=== PATIENT | male | born 1930 | race Caucasian/White ===

== ENCOUNTER 2016-11-29 07:47 | Outpatient (CLI) | payer MEDICARE, OTHER ==
[2016-11-29 13:45] LABS: ALBUMIN/GLOBULIN RATIO 1.7 (1.0-2.2); BILIRUBIN,TOTAL 0.7 mg/dL (0.2-1.0); CALCIUM 9.3 mg/dL (8.5-10.3); CREATININE 1.2 mg/dL (0.6-1.2); POTASSIUM 4.2 mmol/L (3.5-5.0); TOTAL PROTEIN 6.5 g/dL (6.7-8.2)
[2016-11-29 14:08] LABS: HEMOGLOBIN A1C 0.5 g/dL
== END 2016-11-29 07:48 | disposition home or self-care (01) ==
LOC: LAB.WCP 07:47
PROVIDERS: ATTEND Family Medicine
DX: I10 Essential (primary) hypertension (principal); E11.9 Type 2 diabetes mellitus without complications; E78.5 Hyperlipidemia, unspecified; N40.0 Benign prostatic hyperplasia without lower urinary tract symptoms
CPT/HCPCS: 36415; 80053; 82043; 83036

== ENCOUNTER 2016-12-06 09:48 | Outpatient (CLI) | payer MEDICARE, OTHER | END 2016-12-06 09:49 | disposition home or self-care (01) | DX: I95.1 Orthostatic hypotension (principal); R94.6 Abnormal results of thyroid function studies; R55 Syncope and collapse ==

== ENCOUNTER 2016-12-07 08:06 | Outpatient (CLI) | payer MEDICARE, OTHER | END 2016-12-07 08:07 | disposition home or self-care (01) | LOC: DI 08:06 | PROVIDERS: ATTEND Family Medicine | DX: I25.10 Atherosclerotic heart disease of native coronary artery without angina pectoris (principal) | CPT/HCPCS: 93306 ==

== ENCOUNTER 2017-12-28 18:06 | Emergency (ER) | payer MEDICARE, OTHER ==
--- NOTE | 2017-12-28 19:06 | XRAY Report ---
EXAM: LEFT KNEE RADIOGRAPHY EXAM DATE: 12/28/2017 06:56 PM. CLINICAL HISTORY: Knee pain and swelling. COMPARISON: None. TECHNIQUE: 4 views. FINDINGS: Bones: Small osteophytes are present. No fractures or bone lesions. Joints: Moderate severe tricompartmental osteoarthritic changes present. Moderate suprapatellar effus ion seen. No subluxations. Soft Tissues: Normal. No soft tissue swelling. IMPRESSION: Moderate suprapatellar joint effusion, with moderate severe tricompartmental osteoarthrit ic changes. No acute fracture noted. [facility] Referring Provider Line: [phone] SITE ID: [id number]
--- NOTE | 2017-12-28 19:06 | XRAY Preliminary Report ---
Exam: XR KNEE 4 VIEW LT IMPRESSION: Moderate suprapatellar joint effusion, with moderate severe tricompartmental osteoarthrit ic changes. No acute fracture noted. [facility] SITE ID: [id number]
[2017-12-28] MEDS ORDERED: IBUPROFEN 600 MG TABLET PO STA (19:21)
--- NOTE | 2017-12-28 19:30 | ED Physician Documentation ---
PD HPI LOWER EXT INJURY - Stated complaint Stated Complaint: L LEG PX - Chief complaint Chief Complaint: Ext Problem - History obtained from History obtained from: Patient, Family - History of Present Illness PD HPI LOW EXT INJURY LOCATION: Left, Knee Where injury occurred: Home Timing - onset: How many days ago (2) Timing - details: Gradual onset, Still present Improved by: Immobilization Worsened by: Moving, Palpating Associated symptoms: Swelling Similar symptoms before: No diagnosis Recently seen: Not recently seen - Additional information Additional information: Patient is an 87 year old male presenting to the emergency department for pain and swelling of his left knee. Patient states that he does have a history of arthritis and the last few days he has been working on his yard, painting his house and other activities. Patient states that his knee started to get swollen and progressively worse. Review of Systems Ten Systems: 10 systems reviewed and negative Constitutional: denies: Fever, Chills Musculoskeletal: reports: Extremity pain, Joint pain, Extremity swelling, Joint swelling Neurologic: denies: Focal weakness PD PAST MEDICAL HISTORY - Past Medical History Cardiovascular: Murmur Respiratory: None Endocrine/Autoimmune: Type 2 diabetes GI: GERD, Colon polyps : Benign prostate hypertrophy, Incontinence, Frequency HEENT: None Psych: None Musculoskeletal: Osteoarthritis Derm: None - Past Surgical History General: Cholecystectomy, Colonoscopy Ortho: Hip replacement, Arthroscopic surgery HEENT: Cataracts - Present Medications Home Medications: Ambulatory Orders Medication Instructions Recorded Confirmed Aspirin Chewable [[facility] 81 mg PO DAILY 02/11/13 02/11/13 Aspirin] Esomeprazole Magnesium [Nexium] 40 mg PO DAILY 02/11/13 02/11/13 Ipratropium [place] 15 ml NS 02/11/13 02/11/13 Lisinopril [Zestril] 10 mg PO DAILY 02/11/13 02/11/13 Metformin HCl [Fortamet] 500 mg PO DAILY 02/11/13 02/11/13 Simvastatin [Zocor] 10 mg PO QPM 02/11/13 02/11/13 - Allergies Allergies/Adverse Reactions: Allergies Allergy/AdvReac Type Severity Reaction Status Date / Time No Known Drug Allergies Allergy Unverified 02/11/13 13:58 PD ED PE NORMAL - Vitals Vital signs reviewed: Yes - General General: Alert and oriented X 3 - HEENT HEENT: Atraumatic - Cardiac Cardiac: RRR - Respiratory Respiratory: No respiratory distress - Abdomen Abdomen: Non distended - Derm Derm: Normal color - Neuro Neuro: Alert and oriented X 3, No motor deficit, Normal speech Eye Opening: Spontaneous PD ED PE EXPANDED - Extremities Extremities: Left knee (tenderness and swelling of left knee) Results - Vitals Vitals: Vital Signs - 24 hr 12/28/17 12/28/17 18:25 19:47 Temperature 36.7 C 36.5 C Heart Rate 73 77 Respiratory 20 22 Rate Blood Pressure 163/81 H 186/82 H O2 Saturation 97 98 Oxygen O2 Source Room air - Rads (name of study) left knee Radiology: Final report received (severe arthritis, no acute fracture or dislocation) PD MEDICAL DECISION MAKING - ED course Complexity details: reviewed old records, reviewed results, re-evaluated patient , considered differential, d/w patient, d/w family ED course: Patient was seen and examined at bedside. Patient was well appearing. Patient was sent for imaging. When patient returned the results were reviewed. Patient was found to have severe arthritis but no fracture or dislocation. Patient's knee was viewed under ultrasound and there was a large effusion. patient was offered an arthrocentesis but refused at this time. Patient was given ice and ibuprofen. patient required no further work up and was stable for discharge with outpatient follow up. - Sepsis Event Vital Signs: Vital Signs - 24 hr 18 12/28/17 18:25 19:47 Temperature 36.7 C 36.5 C Heart Rate 73 77 Respiratory 20 22 Rate Blood Pressure 163/81 H 186/82 H O2 Saturation 97 98 Oxygen O2 Source Room air Departure - Departure Disposition: 01 Home, Self Care Clinical Impression: Arthritis, Effusion of left knee Condition: Good Instructions: ANTI-INFLAMMATORY, General Follow-Up: Samuel Campos MD [Primary Care Provider] - Comments: Your symptoms today are being caused by a arthritis and a knee effusion. you should ice your knee at least 4 times a day. you can take ibuprofen 600mg and tylenol 1000mg as needed for pain. you should elevate your leg when you are sitting. You should decrease your physical activity over the next few days. you should follow up with your doctor on saturday if your symptoms aren't improving. you may return to the emergency department at any time for new, worsening or uncontrollable symptoms. Discharge Date/Time: 12/28/17 19:53
[2017-12-28 19:49] VITALS: BP 186/82
== END 2017-12-28 19:53 | disposition home or self-care (01) ==
LOC: ED 18:06
DX: M25.462 Effusion, left knee (principal); M17.12 Unilateral primary osteoarthritis, left knee; E11.9 Type 2 diabetes mellitus without complications; Z79.84 Long term (current) use of oral hypoglycemic drugs; Z79.82 Long term (current) use of aspirin
CPT/HCPCS: 73564; 99283; A9270

== ENCOUNTER 2018-01-03 08:08 | Outpatient (CLI) | payer MEDICARE, OTHER ==
[2018-01-03 12:38] LABS: BASOPHILS # (AUTO) 0.1 10^3/uL (0.0-0.1); BASOPHILS % (AUTO) 1.3 %; EOSINOPHILS # (AUTO) 0.3 10^3/uL (0.0-0.7); EOSINOPHILS % (AUTO) 5.7 %; HGB - HEMOGLOBIN 12.6 g/dL (14.0-18.0); LYMPHOCYTES # (AUTO) 0.6 10^3/uL (1.5-3.5); LYMPHOCYTES % (AUTO) 12.3 %; MEAN CORPUSCULAR HEMOGLOBIN 31.6 pg (27.0-31.0); MEAN CORPUSCULAR HGB CONC 33.1 g/dL (32.0-36.0); MEAN CORPUSCULAR VOLUME 95.5 fL (80.0-94.0); MEAN PLATELET VOLUME 8.4 fL (7.4-11.4); MONOCYTES # (AUTO) 0.7 10^3/uL (0.0-1.0); MONOCYTES % (AUTO) 13.8 %; NEUTROPHILS # (AUTO) 3.2 10^3/uL (1.5-6.6); NEUTROPHILS % (AUTO) 66.9 %; PLT - PLATELET COUNT 184 10^3/uL (130-450); RED BLOOD COUNT 3.99 10^6/uL (4.70-6.10); RED CELL DISTRIBUTION WIDTH 13.7 % (12.0-15.0); WHITE BLOOD COUNT 4.8 x10^3/uL (4.8-10.8)
[2018-01-03 13:12] LABS: ALBUMIN 3.7 g/dL (3.2-5.5); ALBUMIN/GLOBULIN RATIO 1.2 (1.0-2.2); ALKALINE PHOSPHATASE 43 IU/L (42-121); ALT ALANINE AMINOTRANSFERASE 17 IU/L (10-60); AST ASPARTATE AMINOTRANSFERASE 20 IU/L (10-42); BILIRUBIN,TOTAL 0.4 mg/dL (0.2-1.0); BUN - BLOOD UREA NITROGEN 25 mg/dL (6-20); CALCIUM 9.3 mg/dL (8.5-10.3); CARBON DIOXIDE - CO2 23 mmol/L (21-32); CHLORIDE 107 mmol/L (101-111); CHOL/HDL RATIO 2.1 (<5.0); CHOLESTEROL 130 mg/dL; GFR - MDRD 71 (>89); GLUCOSE 115 mg/dL (70-100); HDL CHOLESTEROL 63 mg/dL; LDL CHOLESTEROL,CALCULATED 58 mg/dL; LDL/HDL RATIO 0.9 (<3.6); SODIUM 138 mmol/L (135-145); TOTAL PROTEIN 6.9 g/dL (6.7-8.2); VLDL CHOLESTEROL 9 mg/dL
[2018-01-03 13:45] LABS: HB2 TOTAL 13.3 g/dL; HEMOGLOBIN A1C 0.49 g/dL; HEMOGLOBIN A1C % 5.5 % (4.6-6.2)
== END 2018-01-03 23:59 | disposition home or self-care (01) ==
LOC: LAB.WCP 08:08
PROVIDERS: ATTEND Family Medicine
DX: R94.6 Abnormal results of thyroid function studies (principal); E11.9 Type 2 diabetes mellitus without complications; I10 Essential (primary) hypertension; K21.9 Gastro-esophageal reflux disease without esophagitis; L93.0 Discoid lupus erythematosus; E78.5 Hyperlipidemia, unspecified
CPT/HCPCS: 36415; 80053; 80061; 82043; 83036; 83721; 84443; 85025

== ENCOUNTER 2018-04-15 10:20 | Outpatient (CLI) | payer MEDICARE, OTHER ==
[2018-04-15 14:49] LABS: BASOPHILS # (AUTO) 0.1 10^3/uL (0.0-0.1); EOSINOPHILS # (AUTO) 0.1 10^3/uL (0.0-0.7); EOSINOPHILS % (AUTO) 2.5 %; HGB - HEMOGLOBIN 12.8 g/dL (14.0-18.0); LYMPHOCYTES # (AUTO) 0.5 10^3/uL (1.5-3.5); MEAN CORPUSCULAR HEMOGLOBIN 31.7 pg (27.0-31.0); MEAN CORPUSCULAR HGB CONC 33.9 g/dL (32.0-36.0); MEAN CORPUSCULAR VOLUME 93.7 fL (80.0-94.0); MEAN PLATELET VOLUME 9.2 fL (7.4-11.4); MONOCYTES # (AUTO) 0.7 10^3/uL (0.0-1.0); MONOCYTES % (AUTO) 12.5 %; NEUTROPHILS # (AUTO) 4.2 10^3/uL (1.5-6.6); PLT - PLATELET COUNT 150 10^3/uL (130-450); RED BLOOD COUNT 4.03 10^6/uL (4.70-6.10); RED CELL DISTRIBUTION WIDTH 14.2 % (12.0-15.0); WHITE BLOOD COUNT 5.6 x10^3/uL (4.8-10.8)
[2018-04-15 15:18] LABS: ALBUMIN 4.1 g/dL (3.2-5.5); ALBUMIN/GLOBULIN RATIO 1.3 (1.0-2.2); BILIRUBIN,TOTAL 0.5 mg/dL (0.2-1.0); CALCIUM 9.4 mg/dL (8.5-10.3); CRP - C-REACTIVE PROTEIN 6.4 mg/dL (0-1.0); TOTAL PROTEIN 7.3 g/dL (6.7-8.2)
[2018-04-15 15:40] LABS: HB2 TOTAL 13.4 g/dL; HEMOGLOBIN A1C 0.5 g/dL; HEMOGLOBIN A1C % 5.6 % (4.6-6.2)
== END 2018-04-15 10:21 | disposition home or self-care (01) ==
LOC: LAB.WCP 10:20
PROVIDERS: ATTEND Family Medicine
DX: R60.0 Localized edema (principal); E11.9 Type 2 diabetes mellitus without complications; I10 Essential (primary) hypertension
CPT/HCPCS: 36415; 80053; 83036; 85025; 85379; 85651; 86140

== ENCOUNTER 2018-04-17 18:55 | Outpatient (CLI) | payer MEDICARE, OTHER ==
--- NOTE | 2018-04-18 14:52 | Ultrasound Report ---
Reason: EDEMA OF THE UPPER EXTREMITY Procedure Date: 04/17/2018 Accession Number: [id number] / [id number] Procedure: US - Duplex Upr Ext Arterial RT CPT Code: FULL RESULT: EXAM: RIGHT UPPER EXTREMITY ARTERIAL DOPPLER ULTRASOUND EXAM DATE: 04/17/2018 07:40 PM. CLINICAL HISTORY: Edema of the upper extremity. COMPARISON: None. TECHNIQUE: Real-time sonographic vascular imaging was performed by the offender job retention specialist, utilizing color-flow, Doppler flow, and spectral analysis. Multiple community relations representative static images were saved for review. FINDINGS: Subjectively the arterial system is free of atherosclerotic disease and patent by color Doppler, spectral Doppler and grayscale ultrasound. Expected arterial waveforms are preserved throughout the right arm and forearm. Right Upper Extremity Arterial: Subclavian Proximal: PSV 88 Subclavian Mid: PSV 82 Subclavian Distal: PSV 109 Axillary Proximal: PSV 64 Axillary Distal: PSV 87 Brachial Proximal: PSV 112 Brachial Distal: PSV 98 Radial Proximal: PSV 104 Radial Distal: PSV 90 Ulnar Proximal: PSV 56 Ulnar Distal: PSV 80 IMPRESSION: Normal arterial interrogation. If there is unilateral arm swelling, consider upper extremity venous duplex to exclude the possibility of a DVT, especially if there is a history of central venous port or central venous line placement. [facility]
== END 2018-04-17 18:56 | disposition home or self-care (01) ==
LOC: DI 18:55
PROVIDERS: ATTEND Family Medicine
DX: R60.0 Localized edema (principal)

== ENCOUNTER 2018-04-17 19:12 | Outpatient (CLI) | payer MEDICARE, OTHER | END 2018-04-17 19:13 | disposition home or self-care (01) | LOC: DI 19:12 | PROVIDERS: ATTEND Family Medicine | DX: R60.0 Localized edema (principal) ==

== ENCOUNTER 2018-10-17 07:46 | Outpatient (CLI) | payer MEDICARE, OTHER ==
[2018-10-17 13:31] LABS: ALBUMIN 4.1 g/dL (3.2-5.5); ALBUMIN/GLOBULIN RATIO 1.5 (1.0-2.2); ALKALINE PHOSPHATASE 38 IU/L (42-121); ALT ALANINE AMINOTRANSFERASE 17 IU/L (10-60); AST ASPARTATE AMINOTRANSFERASE 23 IU/L (10-42); BILIRUBIN,TOTAL 0.7 mg/dL (0.2-1.0); BUN - BLOOD UREA NITROGEN 27 mg/dL (6-20); CALCIUM 9.7 mg/dL (8.5-10.3); CARBON DIOXIDE - CO2 25 mmol/L (21-32); CHLORIDE 105 mmol/L (101-111); CHOL/HDL RATIO 1.8 (<5.0); CHOLESTEROL 137 mg/dL; CREATININE 1.3 mg/dL (0.6-1.2); GFR - MDRD 52 (>89); GLUCOSE 115 mg/dL (70-100); HDL CHOLESTEROL 75 mg/dL; LDL CHOLESTEROL,CALCULATED 52 mg/dL; LDL/HDL RATIO 0.7 (<3.6); SODIUM 139 mmol/L (135-145); TOTAL PROTEIN 6.8 g/dL (6.7-8.2); VLDL CHOLESTEROL 10 mg/dL
[2018-10-17 14:07] LABS: HEMOGLOBIN A1C 0.61 g/dL; HEMOGLOBIN A1C % 6.1 % (4.6-6.2)
== END 2018-10-17 23:59 | disposition home or self-care (01) ==
LOC: LAB.WCP 07:46
PROVIDERS: ATTEND Family Medicine
DX: I10 Essential (primary) hypertension (principal); E11.9 Type 2 diabetes mellitus without complications; E78.5 Hyperlipidemia, unspecified
CPT/HCPCS: 36415; 80053; 80061; 83036; 83721

== ENCOUNTER 2018-11-26 08:10 | Outpatient (CLI) | payer MEDICARE, OTHER ==
[2018-11-26 12:49] LABS: BASOPHILS # (AUTO) 0.1 10^3/uL (0.0-0.1); BASOPHILS % (AUTO) 1.1 %; EOSINOPHILS # (AUTO) 0.3 10^3/uL (0.0-0.7); EOSINOPHILS % (AUTO) 6.2 %; HGB - HEMOGLOBIN 12.9 g/dL (14.0-18.0); LYMPHOCYTES # (AUTO) 0.7 10^3/uL (1.5-3.5); LYMPHOCYTES % (AUTO) 14.4 %; MEAN CORPUSCULAR HEMOGLOBIN 31.6 pg (27.0-31.0); MEAN CORPUSCULAR VOLUME 95.7 fL (80.0-94.0); MEAN PLATELET VOLUME 9.1 fL (7.4-11.4); MONOCYTES # (AUTO) 0.6 10^3/uL (0.0-1.0); MONOCYTES % (AUTO) 13.3 %; NEUTROPHILS # (AUTO) 3.1 10^3/uL (1.5-6.6); PLT - PLATELET COUNT 146 10^3/uL (130-450); RED BLOOD COUNT 4.07 10^6/uL (4.70-6.10); RED CELL DISTRIBUTION WIDTH 14.1 % (12.0-15.0); WHITE BLOOD COUNT 4.7 x10^3/uL (4.8-10.8)
[2018-11-26 13:27] LABS: CALCIUM 9.2 mg/dL (8.5-10.3); CREATININE 1.1 mg/dL (0.6-1.2)
== END 2018-11-26 08:11 | disposition home or self-care (01) ==
LOC: LAB.WCP 08:10
PROVIDERS: ATTEND Family Medicine
DX: I10 Essential (primary) hypertension (principal); E11.9 Type 2 diabetes mellitus without complications
CPT/HCPCS: 36415; 80048; 84443; 85025

== ENCOUNTER 2019-05-03 18:55 | Outpatient (CLI) | payer MEDICARE, OTHER | END 2019-05-03 18:56 | disposition critical access hospital (66) | LOC: EMS 18:55 | PROVIDERS: ATTEND Surgery | DX: R51 Headache (principal); M54.2 Cervicalgia | CPT/HCPCS: A0425; A0429 ==

== ENCOUNTER 2019-05-03 19:14 | Emergency (ER) | payer MEDICARE, OTHER ==
--- NOTE | 2019-05-03 20:03 | ED Physician Documentation ---
PD HPI HEADACHE - Stated complaint Stated Complaint: HEADACHE - Chief complaint Chief Complaint: Neuro - History obtained from History obtained from: Patient - History of Present Illness Timing - onset: Today (onset severe posterior neck pain after getting up this morning. No noted injury. It improved with some Aleve after an hour or so, and was good through the day. Onset again at rest this evening about 2 hours ago. Took Aleve again but was not really helping. Here for eval. Pain worse with ROM of the neck. No headache per se. No neuro symptoms. No prior similar.) Timing - onset during: Rest Timing - duration: Hours Timing - details: Abrupt onset, Still present Worst headache ever?: Worst headache ever? Location: Back, Right (mid to upper neck, not into head per se.) Quality: Stabbing. No: Thunderclap Associated symptoms: No: Fever, Stiff neck, Nausea, Vomiting, Weakness, Numbness, Vision changes Worsened by: No: Light, Noise Contributing factors: No: Recent illness Similar symptoms before: Has not had sx before Recently seen: Not recently seen Review of Systems Constitutional: denies: Fever, Chills Nose: denies: Rhinorrhea / runny nose, Congestion Throat: denies: Sore throat Respiratory: denies: Cough GI: denies: Abdominal Pain, Nausea, Vomiting, Diarrhea Skin: denies: Rash, Lesions Neurologic: denies: Focal weakness, Numbness PD PAST MEDICAL HISTORY - Past Medical History Cardiovascular: Murmur Respiratory: None Neuro: None Endocrine/Autoimmune: Other GI: GERD, Colon polyps : Benign prostate hypertrophy, Incontinence, Frequency HEENT: None Psych: None Musculoskeletal: Osteoarthritis Derm: None Other Past Medical History: pre diabetes - Past Surgical History Past Surgical History: Yes General: Cholecystectomy, Colonoscopy Ortho: Hip replacement HEENT: Cataracts - Present Medications Home Medications: Ambulatory Orders Medication Instructions Recorded Confirmed Aspirin Chewable [[facility] 81 mg PO DAILY 02/11/13 02/11/13 Aspirin] Esomeprazole Magnesium [Nexium] 40 mg PO DAILY 02/11/13 02/11/13 Ipratropium [place] 15 ml NS 02/11/13 02/11/13 Lisinopril [Zestril] 10 mg PO DAILY 02/11/13 02/11/13 Metformin HCl [Fortamet] 500 mg PO DAILY 02/11/13 02/11/13 Simvastatin [Zocor] 10 mg PO QPM 02/11/13 02/11/13 Hydrocodone/Acetaminophen [[place] 1 each PO Q6H PRN #15 tablet 05/03/19 5-325 Tablet] - Allergies Allergies/Adverse Reactions: Allergies Allergy/AdvReac Type Severity Reaction Status Date / Time No Known Drug Allergies Allergy Unverified 02/11/13 13:58 - Social History Does the pt smoke?: No Smoking Status: Never smoker Does the pt drink ETOH?: No Does the pt have substance abuse?: No - Immunizations Immunizations are current?: Yes PD ED PE NORMAL - Vitals Vital signs reviewed: Yes - General General: Alert and oriented X 3, Well developed/nourished, Other (appears uncomfortable but pleasant and alert.) - HEENT HEENT: Moist mucous membranes, Pharynx benign - Neck Neck: Supple, no meningeal sign, No adenopathy, Other (tender right paracervical muscles. No rash nor redness. No deformity. Good ROM but hurts with upward and right sideward movement. ) - Cardiac Cardiac: RRR, No murmur - Respiratory Respiratory: Clear bilaterally - Back Back: No CVA TTP - Derm Derm: Normal color, Warm and dry - Neuro Neuro: Alert and oriented X 3, center line cutter operator 2-12 intact, No motor deficit, No sensory deficit, Normal speech, Other Results - Vitals Vitals: Vital Signs - 24 hr 05/03/19 05/03/19 05/03/19 19:16 20:00 21:52 Temperature 36.4 C L 36.8 C Heart Rate 76 77 71 Respiratory 14 12 Rate Blood Pressure 154/85 H 158/96 H 148/61 H O2 Saturation 99 97 97 05/03/19 23:23 Temperature 36.9 C Heart Rate 78 Respiratory 16 Rate Blood Pressure 156/88 H O2 Saturation 97 Oxygen O2 Source Room air - Labs Labs: Laboratory Tests 05/03/19 05/03/19 20:45 20:45 ESR 20 Sodium 142 Potassium 4.0 Chloride 109 Carbon Dioxide 25 Anion Gap 8.0 BUN 23 H Creatinine 0.9 Estimated GFR (MDRD) 79 L Glucose 151 H Calcium 9.1 Total Bilirubin 0.4 AST 21 ALT 18 Alkaline Phosphatase 44 Total Protein 6.6 L Albumin 3.8 Globulin 2.8 Albumin/Globulin Ratio 1.4 Lipase 26 - Rads (name of study) cervical CT and CTA Radiology: Prelim report reviewed (arthritic changes. 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 ), considered differential, d/w patient Departure - Departure Disposition: 01 Home, Self Care Clinical Impression: Acute neck pain Condition: Stable Record reviewed to determine appropriate education?: Yes Instructions: ED Sprain Strain Neck Follow-Up: Samuel Campos MD [Primary Care Provider] - Prescriptions: Hydrocodone/Acetaminophen [[place] 5-325 Tablet] 1 each PO Q6H PRN #15 tablet PRN Reason: Pain Comments: The CT scan of the neck shows some arthritic changes and some mild vascular abnormalities but none that represent acute process or reason for hurting. This seems to be muscular therefore. Use some heat and gentle stretching for the neck. Consider anti-inflammatory such as the Aleve 2 tablets 3 times a day for the next for 5 days. To that add Tylenol 4 times a day or hydrocodone if needed for worse pain. I would anticipate improvement over the next several days presuming just a muscle strain with spasms Discharge Date/Time: 05/03/19 23:41
[2019-05-03] MEDS ORDERED: KETOROLAC 15 MG/ML VIAL IVP STA (20:17)
[2019-05-03] MEDS ORDERED: SODIUM CHLORIDE 0.9% 1,000 ML IV ONE (20:17)
[2019-05-03] MEDS ORDERED: DEXAMETHASONE 10 MG/ML VIAL IVP STA (20:18)
[2019-05-03 21:02] LABS: ALBUMIN 3.8 g/dL (3.2-5.5); ALBUMIN/GLOBULIN RATIO 1.4 (1.0-2.2); BILIRUBIN,TOTAL 0.4 mg/dL (0.2-1.0); CALCIUM 9.1 mg/dL (8.5-10.3); CREATININE 0.9 mg/dL (0.6-1.2); TOTAL PROTEIN 6.6 g/dL (6.7-8.2)
[2019-05-03] MEDS ORDERED: IOVERSOL 320 100 ML VIAL IVP ONE ×2 (21:04→21:47)
--- NOTE | 2019-05-03 22:14 | CT Report ---
Reason: neck pain onset this AM; again this evening Procedure Date: 05/03/2019 Accession Number: [id number] / [id number] Procedure: CT - CERVICAL SPINE WO CPT Code: FULL RESULT: EXAM: CT CERVICAL SPINE WITHOUT CONTRAST DATE: 05/03/2019 09:39 PM. HISTORY: Neck pain since this morning. COMPARISONS: None. TECHNIQUE: Thin-section axial images were acquired of the cervical spine without contrast. Post-processing: Coronal and sagittal reformats. Other: None. In accordance with CT protocol optimization, one or more of the following dose reduction techniques were utilized for this exam: automated exposure control, adjustment of mA and/or KV based on patient size, or use of iterative reconstructive technique. FINDINGS: Alignment: No pathologic subluxation demonstrated. Bones: No acute displaced fracture or suspicious bony lesion is demonstrated. However, bones are moderate to severely osteopenic. This reduces exam sensitivity and specificity for detection of subtle bony lesions and/or fractures. Interspace Levels/Facets: There is moderate to severe multilevel cervical spondylitic change. There is no significant bony central canal stenosis demonstrated. Other: Moderate right apical pleural thickening/scarring. Mild similar left apical pleural thickening/scarring. All the visualized paravertebral soft tissues are without abnormality. IMPRESSION: 1. There is moderate to severe multilevel cervical spondylitic change. 2. No definite acute bony abnormality. However, bones are moderate to severely osteopenic. This reduces exam sensitivity and specificity for detection of subtle bony lesions and/or fractures. [facility]
--- NOTE | 2019-05-03 23:17 | CT Report ---
Reason: neck pain onset this AM; again this evening Procedure Date: 05/03/2019 Accession Number: [id number] / [id number] Procedure: CT - ANGIO NECK W CPT Code: FULL RESULT: EXAM: CT ANGIOGRAM NECK EXAM DATE: 05/03/2019 09:44 PM. CLINICAL HISTORY: Neck pain onset this AM, and again this evening. COMPARISON: None. TECHNIQUE: Routine axial helical imaging was performed from the skull base through the aortic arch. Reconstructions: Routine multiplanar 3D MIP reconstructions. IV Contrast: 100 mL Optiray 320. Evaluation of arterial stenosis is based on a NASCET method of measurement. In accordance with CT protocol optimization, one or more of the following dose reduction techniques were utilized for this exam: automated exposure control, adjustment of mA and/or KV based on patient size, or use of iterative reconstructive technique. FINDINGS: Right Carotid: The common, internal, and external carotid arteries are patent. Mild calcified plaque is present at the carotid bifurcation without hemodynamically significant stenosis. A linear filling defect is seen along the posterior wall of the proximal ICA (image 154, series 2), likely representing an old dissection. 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 Left Carotid: The common, internal, and external carotid arteries are patent. Bulky calcifications are present at the carotid bifurcation resulting in approximately 50% stenosis of the ICA origin. Additionally, there is a filling defect along the lateral and anterior wall of the proximal ICA, suspicious for an old aneurysm with associated anteriorly directed pseudoaneurysm measuring 2 x 2 mm (image 178, series 2) versus an ulcerated plaque. Vertebrals: The vertebrobasilar system shows no stenoses. The left vertebral artery is dominant. Intracranial Circulation: Normal. No stenoses or aneurysms of the visualized vessels. Other: Mild emphysematous changes are noted in the visualized upper lungs. There is mild right apical scarring. The airway is patent. Moderate to severe degenerative changes are present throughout the cervical spine. No acute abnormality is seen in the remaining soft tissues of the neck. IMPRESSION: 1. 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 2. 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 3. 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 4. Patent vertebral arteries. [facility]
[2019-05-03 23:23] VITALS: BP 156/88
[2019-05-03] MEDS ORDERED: HYDROcod/ACET 5/325 Prepack 4 PO STA (23:29)
== END 2019-05-03 23:41 | disposition home or self-care (01) ==
LOC: EDUNIT# → ED 19:14
DX: M54.2 Cervicalgia (principal); M47.812 Spondylosis without myelopathy or radiculopathy, cervical region; Z79.82 Long term (current) use of aspirin
CPT/HCPCS: 36415; 70498; 72125; 80053; 83690; 85651; 96361; 96374; 96375; 99284; Q9967

== ENCOUNTER 2019-05-12 08:00 | Outpatient (CLI) | payer MEDICARE, OTHER ==
[2019-05-12 12:18] LABS: BASOPHILS % (AUTO) 0.5 %; EOSINOPHILS # (AUTO) 0.2 10^3/uL (0.0-0.7); HGB - HEMOGLOBIN 11.8 g/dL (14.0-18.0); LYMPHOCYTES # (AUTO) 0.6 10^3/uL (1.5-3.5); MEAN CORPUSCULAR HEMOGLOBIN 30.3 pg (27.0-31.0); MEAN CORPUSCULAR HGB CONC 31.1 g/dL (32.0-36.0); MEAN CORPUSCULAR VOLUME 97.7 fL (80.0-94.0); MEAN PLATELET VOLUME 9.8 fL (7.4-11.4); MONOCYTES # (AUTO) 0.9 10^3/uL (0.0-1.0); MONOCYTES % (AUTO) 16.2 %; NEUTROPHILS # (AUTO) 3.8 10^3/uL (1.5-6.6); NEUTROPHILS % (AUTO) 67.8 %; PLT - PLATELET COUNT 209 10^3/uL (130-450); RED BLOOD COUNT 3.89 10^6/uL (4.70-6.10); RED CELL DISTRIBUTION WIDTH 13.7 % (12.0-15.0); WHITE BLOOD COUNT 5.6 x10^3/uL (4.8-10.8)
[2019-05-12 12:44] LABS: HB2 TOTAL 12.4 g/dL; HEMOGLOBIN A1C 0.47 g/dL; HEMOGLOBIN A1C % 5.6 % (4.6-6.2)
[2019-05-12 12:48] LABS: ALBUMIN 4.1 g/dL (3.2-5.5); ALBUMIN/GLOBULIN RATIO 1.5 (1.0-2.2); BILIRUBIN,TOTAL 0.6 mg/dL (0.2-1.0); CALCIUM 9.2 mg/dL (8.5-10.3); TOTAL PROTEIN 6.9 g/dL (6.7-8.2)
[2019-05-12 12:50] LABS: CREATININE,URINE 59.1 mg/dL; MICROALBUM/CREATININE RATIO,UR 8.5 ug/mg (<30.0); MICROALBUMIN,URINE 0.5 mg/dL (0-300.0)
[2019-05-13 15:48] LABS: FREE T4 (FREE THYROXINE) 0.83 ng/dL (0.58-1.64)
== END 2019-05-12 23:59 | disposition home or self-care (01) ==
LOC: LAB.WCP 08:00
PROVIDERS: ATTEND Family Medicine
DX: I10 Essential (primary) hypertension (principal); E11.9 Type 2 diabetes mellitus without complications
CPT/HCPCS: 36415; 80053; 82043; 82570; 83036; 84439; 84443; 85025

== ENCOUNTER 2019-05-19 08:00 | Outpatient (CLI) | payer MEDICARE, OTHER ==
[2019-05-19 19:17] LABS: CALCIUM 9.8 mg/dL (8.5-10.3)
[2019-05-19 20:03] LABS: FREE T4 (FREE THYROXINE) 0.86 ng/dL (0.58-1.64)
== END 2019-05-19 08:01 | disposition home or self-care (01) ==
LOC: LAB.WCP 08:00
PROVIDERS: ATTEND Physician Assistant
DX: E11.9 Type 2 diabetes mellitus without complications (principal); R94.6 Abnormal results of thyroid function studies
CPT/HCPCS: 36415; 80048; 84439; 84443

== ENCOUNTER 2019-07-27 08:00 | Outpatient (CLI) | payer MEDICARE, OTHER ==
[2019-07-27 14:21] LABS: FREE T4 (FREE THYROXINE) 0.81 ng/dL (0.58-1.64)
== END 2019-07-27 23:59 | disposition home or self-care (01) ==
LOC: LAB.WCP 08:00
PROVIDERS: ATTEND Physician Assistant
DX: R94.6 Abnormal results of thyroid function studies (principal)
CPT/HCPCS: 36415; 84439; 84443